=== PATIENT | female | born 1995 | race African-American/Black ===

== ENCOUNTER 2017-10-05 19:33 | Emergency (ER) | payer BC | END 2017-10-05 21:14 | disposition home or self-care (01) | LOC: E/R 19:33 | DX: H61.21 Impacted cerumen, right ear (principal); J45.909 Unspecified asthma, uncomplicated; Z76.0 Encounter for issue of repeat prescription | CPT/HCPCS: 99283 ==

== ENCOUNTER 2017-12-26 12:00 | Emergency (ER) | payer OTHER, BC | END 2017-12-26 12:27 | disposition home or self-care (01) | LOC: E/R 12:00 | DX: J02.9 Acute pharyngitis, unspecified (principal); J45.909 Unspecified asthma, uncomplicated | CPT/HCPCS: 99283 ==

== ENCOUNTER 2018-02-19 15:14 | Emergency (ER) | payer OTHER ==
[2018-02-19 17:53] LABS: URINE BLOOD (Dip) POC Negative (NEGATIVE); URINE GLUCOSE (Dip) POC Negative (NEGATIVE); URINE KETONES (Dip) POC Negative (NEGATIVE); URINE LEUKOCYTE EST (Dip) POC Negative (NEGATIVE); URINE NITRITE (Dip) POC Negative (NEGATIVE); URINE TOTAL PROTEIN POC Negative (NEGATIVE)
== END 2018-02-19 20:10 | disposition home or self-care (01) ==
LOC: FTE 15:14
DX: S33.5XXA Sprain of ligaments of lumbar spine, initial encounter (principal); S13.9XXA Sprain of joints and ligaments of unspecified parts of neck, initial encounter; J45.909 Unspecified asthma, uncomplicated; V89.2XXA Person injured in unspecified motor-vehicle accident, traffic, initial encounter
CPT/HCPCS: 72040; 72100; 72125; 72131; 81003; 81025; 99285-25

== ENCOUNTER 2018-06-12 11:00 | Emergency (ER) | payer OTHER ==
[2018-06-12] MEDS: IBUPROFEN 800 MG TAB PO (11:45)
== END 2018-06-12 12:15 | disposition home or self-care (01) ==
LOC: FTE 11:00
DX: M54.2 Cervicalgia (principal); M54.5 Low back pain; J45.909 Unspecified asthma, uncomplicated
CPT/HCPCS: 99283; Z7502

== ENCOUNTER 2019-01-30 22:16 | Emergency (ER) | payer OTHER | END 2019-01-31 01:45 | disposition home or self-care (01) | LOC: FTE 22:16 | DX: J02.9 Acute pharyngitis, unspecified (principal); J45.909 Unspecified asthma, uncomplicated | CPT/HCPCS: 99283 ==

== ENCOUNTER 2019-02-20 11:13 | Emergency (ER) | payer OTHER | END 2019-02-20 12:30 | disposition home or self-care (01) | LOC: FTE 11:13 | DX: R21 Rash and other nonspecific skin eruption (principal); J45.909 Unspecified asthma, uncomplicated | CPT/HCPCS: 99283 ==